=== PATIENT | male | born 1980 | race Caucasian/White ===

== ENCOUNTER 2017-04-27 06:19 | Observation (INO) | payer OTHER ==
[~2017-04-27] VITALS: Ht 195.6 cm; Wt 117.9 kg
[2017-04-27] VITALS (8 sets, daily range): BP systolic 118–176; BP diastolic 60–109; PULSE 60–79; RESP 14–20; TEMP 96–98.6; O2SAT 94–99
[~2017-04-27 06:19] MED LIST: ALBUAER3 INH; CIAL20TA PO; LISI-515 PO; MONT10TA4 PO; SYMB160A INH
[2017-04-27] MEDS ORDERED: ACETAMINOPHEN 1000 MG/100 ML 100 ML IV ONE (06:31)
[2017-04-27] MEDS ORDERED: AMPICILLIN/SULBAC 3 GM/NS 100 ML IV SCH ×2 (06:45)
[2017-04-27] MEDS ORDERED: METOPROLOL TARTRATE 25 MG TAB PO PRN (06:45)
[2017-04-27] MEDS ORDERED: CHLORHEXIDINE GLUCONATE 2 % 1 PACK (2 CLOTHS) TOPICAL PRN (06:45)
[2017-04-27] MEDS ORDERED: LACTATED RINGER'S 1000 ML IV PRN (06:45)
[2017-04-27] MEDS ORDERED: SODIUM CHLORID 0.9% 500 ML IV PRN (06:45)
[2017-04-27] MEDS ORDERED: POVIDONE IODINE 5% (ANTISEPSIS KIT) 4 APPLICATIONS EACH NARE PRN (06:45)
[2017-04-27] MEDS ORDERED: FAMOTIDINE 20 MG/2 ML VIAL ONE (06:59)
[2017-04-27] MEDS ORDERED: METOCLOPRAMIDE HCL 10 MG/2 ML VIAL ONE (06:59)
[2017-04-27] MEDS ORDERED: MIDAZOLAM HCL 2 MG/2 ML VIAL ONE (06:59)
[2017-04-27] MEDS ORDERED: OXYMETAZOLINE HCL 0.05% 15 ML NASAL SPRAY ONE (07:00)
[2017-04-27] MEDS ORDERED: LIDOCAINE 1%/EPINEPHrine 1:100,000 SOLN 20 ML VIAL ONE (07:00)
[2017-04-27] MEDS ORDERED: *MEPERIDINE 25 MG INJ VIAL PERIprocedural Use ONLY ONE (09:32)
[2017-04-27] MEDS ORDERED: DO NOT ADM ANY ANTICOAGULANT DRUGS PRN (10:00)
[2017-04-27] MEDS ORDERED: ONDANSETRON HCL 4 MG/2 ML VIAL IV PRN (10:00)
[2017-04-27] MEDS: ACETAMINOPHEN/HYDROcodone 325 MG/5 MG TAB PO PRN ×4 (10:46→23:40)
[2017-04-27] MEDS: LACTATED RINGER'S 1000 ML INJ 1,000 ML IV SCH ×2 (10:50→21:34)
[2017-04-27] MEDS: AMPICILLIN/SULBAC 3 GM/NS 100 ML IV SCH ×4 (14:44→23:39)
[2017-04-28] VITALS: BP 179/100; PULSE 73; RESP 20; TEMP 97.7; O2SAT 98
[2017-04-28 04:00] VITALS: BP_SYST 138; BP_SYST 159; BP_DIAS 85; BP_DIAS 99; PULSE 60; RESP 20; TEMP 97; O2SAT 100; O2SAT 99
[2017-04-28] MEDS: ACETAMINOPHEN/HYDROcodone 325 MG/5 MG TAB PO PRN ×2 (04:37→08:30)
[2017-04-28] MEDS: LACTATED RINGER'S 1000 ML INJ 1,000 ML IV SCH (06:00)
[2017-04-28] MEDS: AMPICILLIN/SULBAC 3 GM/NS 100 ML IV SCH ×2 (06:35)
[2017-04-28 08:00] VITALS: BP 148/76; PULSE 80; RESP 20; TEMP 98.5; O2SAT 96
[2017-04-28] MEDS ORDERED: DEXAMETHASONE SOD PHOS 4 MG/ML VIAL IV ONE (12:00)
[2017-04-28] MEDS ORDERED: ePHEDrine/NS 25 MG/5 ML SYRINGE IV ONE (12:00)
[2017-04-28] MEDS ORDERED: LIDOCAINE HCL 1% PF 5 ML SYRINGE OTHER ONE (12:00)
[2017-04-28] MEDS ORDERED: ONDANSETRON HCL 4 MG/2 ML VIAL IV PUSH ONE (12:00)
[2017-04-28] MEDS ORDERED: PROPOFOL 200 MG/20 ML AMP IV ONE (12:00)
[2017-04-28] MEDS ORDERED: SUCCINYLCHOLINE CHLORIDE 100 MG/5 ML SYRINGE IV PUSH ONE (12:00)
--- NOTE | 2017-05-17 09:13 | MP ---
cc: FITO SOLORZANO M.D. DATE OF OPERATION April 27, [address] Fito Solorzano PREOPERATIVE DIAGNOSES 1. Nasal airway obstruction. 2. Nasal septal deviation. 3. Hypertrophy of inferior turbinates. 4. Chronic sinus headache. 5. Chronic sinusitis. POSTOPERATIVE DIAGNOSES 1. Nasal airway obstruction. 2. Nasal septal deviation. 3. Hypertrophy of inferior turbinates. 4. Chronic sinus headache. 5. Chronic sinusitis. OPERATION PERFORMED 1. Open repair of nasal septal fracture. 2. Bilateral submucosal resection of inferior turbinates. 3. Bilateral endoscopic maxillary antrostomy with removal of maxillary sinus tissue. 4. Bilateral exploration of frontal sinus ducts with balloon sinuplasty. 5. Bilateral endoscopic sphenoidotomy with removal of sphenoid sinus tissue. INDICATIONS Documented in the history and physical. DESCRIPTION OF OPERATION The patient was taken to OR #2 and placed in the supine position. Following induction of general anesthesia and intubation the nose was packed bilaterally with cotton pledgets saturated in 0.05% Oxymetazoline. The septal mucosa and inferior turbinates were injected with a total of 12 mL of 1% Xylocaine with epinephrine 1:100,000. He was then prepped and draped for surgery. The packing was removed and a hemitransfixion incision was made in the left nasal vestibule and through this incision the septal mucosa was elevated as far as the junction of the bony and cartilaginous septum. This exposed the quadrangular cartilage which showed evidence of old fracture with numerous fragments extending into the nasal airway bilaterally. A cumulative area of 2 x 2.5-cm was removed preserving 1.5-cm dorsal and caudal cartilaginous struts. When this was completed the mucosa was elevated from the bony septum and the maxillary crest and these were removed using Leonard-Nash forceps and Quirino septal forceps on the bony septum and a 6-mm Clotilde chisel on the maxillary crest. This was completed preserving the anterior nasal spine. The incision was then closed using a running suture of 4-0 chromic and the mucosal layers of septum were approximated to each other with a quilting stitch of 4-0 plain gut. The inferior turbinates were addressed next. They were fractured out medially and stab incisions were made on their anterior ends then using a Idalia elevator a pocket was developed submucosally medial to the conchal bone. The power debrider was then inserted into this pocket and activated both medially and inferiorly as it was withdrawn. The bipolar was then inserted into the pocket and activated as it was withdrawn for hemostasis. Additional cautery was applied to the incision site. The remnants of the inferior turbinates then we lateralized to the lateral nasal wall. This was completed bilaterally. The remainder the operation was done using endoscopic visualization. Using a Storz 0-degree fiberoptic scope and a 3-mm olive-tip suction the maxillary ostium was probed and then enlarged using Stammberger forceps. Inflamed tissue from the maxillary sinus then was debrided using the upbiting Blakesley forceps rotated 90 degrees. The sphenoid was addressed next. Ostium was identified and enlarged using a #10 suction and using the 0-degree scope the sinus contents were removed using Blakesley forceps. Lastly on this side using the Acclarent balloon technique, the frontal sinus duct was dilated. The balloon guidewire was advanced into the frontal sinus and over the guidewire the balloon was inflated at three locations superiorly, at the midpoint inferiorly and the frontal duct. It was then removed and using a 70-degree scope the duct was verified patent all the way into the frontal sinus. This side was then irrigated and packed with cotton pledgets saturated in Oxymetazoline. The right side was operated in the same fashion beginning with the enlargement of the maxillary sinus ostium and debridement of the cavity, followed by debridement of the sphenoid sinus ostium and cavity. Lastly, on the right side the balloon dilation technique was used to dilate and clear the frontal duct and sinus. All sinuses were then irrigated and suctioned. The inferior nasal vault was then filled with a 5.5-cm Rapid Rhino pack on each side, each inflated with 5 mL of air and the procedure was terminated. The patient was reversed anesthesia and taken to Recovery in good condition. There no complications. Blood loss was 200 mL. MD CORNELIUS Day/KHAI /7:41 AM /8:54 AM
== END 2017-04-28 09:00 | disposition home or self-care (01) ==
LOC: PHSDC 06:19 → PH3A 10:19
PROVIDERS: ADMIT Otolaryngology; ATTEND Otolaryngology
DX: J34.2 Deviated nasal septum (principal); J34.3 Hypertrophy of nasal turbinates; J32.9 Chronic sinusitis, unspecified; I10 Essential (primary) hypertension; J45.909 Unspecified asthma, uncomplicated
CPT/HCPCS: 00160; 21336; 30140; 31256; 31276; 31288; 94762; 96365; 96366; G0378; J0131; J0295; J0330; J1100; J2175; J2250; J2405; J2765; J3010; J7120